=== PATIENT | male | born 1995 | race Caucasian/White ===

== ENCOUNTER → 2018-06-03 | Outpatient (CLI) | payer OTHER ==
--- NOTE | 2018-06-03 15:50 | DIAGNOSTIC IMAGING REPORT ---
CT HEAD WITHOUT CONTRAST (CT) CLINICAL HISTORY: CHRONIC DAILY HEADACHES COMPARISON STUDY: No previous studies for comparison. TECHNIQUE: Axial CT of the brain is performed from the vertex to the skull base. IV contrast was not administered for this examination. A dose lowering technique was utilized adhering to the principles of ALARA. CT DOSE: 537.48 mGy.cm FINDINGS: No intra or extra-axial mass lesions are visualized. There is no CT evidence of acute cortical infarction. There is no evidence of midline shift. There is no acute hemorrhage. No calvarial fractures are visualized. There is no evidence of pathologic ventricular dilatation. There is no evidence of acute sinusitis IMPRESSION: Normal noncontrast head CT. Electronically signed by: Pasquale Torres M.D. 06/03/2018 3:48 PM Dictated Date/Time: 06/03/2018 3:48 PM
== END | disposition home or self-care (01) ==
LOC: C.CTS 15:30
PROVIDERS: ATTEND Family Medicine Adolescent Medicine
DX: R51 Headache (principal)